=== PATIENT | female | born 1945 | race Caucasian/White ===

== ENCOUNTER 2018-04-07 06:52 | Day surgery (SDC) | payer MEDICARE, BC ==
--- NOTE | 2018-04-04 19:37 | HP ---
CC: Dr. Lee [facility]; Dr. Chris Marie; Dr. Tomy Saeed * ADMISSION HISTORY AND PHYSICAL: DATE OF ADMISSION: 04/07/18 - [facility] ATTENDING SURGEON: Dr. Jason Khalil * (DICTATED BY JD THOMAS) CHIEF COMPLAINT: Melanoma, left posterior thigh. HISTORY OF PRESENT ILLNESS: This is a 72-year-old female with past history of melanoma of the left upper extremity who was recently evaluated by Dr. Marie for number of pigmented skin lesions. A lesion of the left posterior thigh was suspicious and was shave biopsied, revealing a nodular melanoma measuring 0.8 x 0.8 x 0.2 cm with a thickness of 1.4 mm with margin of 0.1 cm for the closest lateral margin and 0.2 cm for the base of the lesion. She was referred for general surgical evaluation and was seen in the office by Dr. Khalil on . The case was reviewed with Dr. Tomy Saeed and after review of the indications, risks, benefits and alternatives, the patient would like to proceed as scheduled with wide excision of left posterior thigh melanoma with sentinel lymph node biopsy. The patient is fairly anxious about the procedure and I did e-send a prescription for Xanax 0.5 mg to her pharmacy for preoperative anxiety. She states that she has no known family history of melanoma and that she has undergone yearly dermatological examinations with Dr. Schmid in [place]. PAST MEDICAL HISTORY: 1. COPD. 2. Anxiety. 3. Hypertension. 4. Hyperlipidemia. PAST SURGICAL HISTORY: Include: 1. Excision of left upper extremity melanoma, 8 to 10 years ago. It does not sound as though the patient underwent sentinel lymph node biopsy at that time. 2. She has had bilateral varicoses vein surgery. 3. Tubal ligation with no reported surgical anesthesia complications. CURRENT MEDICATIONS: 1. Albuterol nebulizer each morning and p.r.n. 2. Anoro Ellipta 62.5/25 one inhalation once daily. 3. Bupropion 150 g b.i.d. 4. Metoprolol succinate 25 mg once daily. 5. Atorvastatin 40 mg once daily. 6. Aspirin 81 mg once daily (the patient instructed to hold after today, her last dose being 04/04/18). 7. Multivitamin daily. 8. Calcium with vitamin D daily. 9. Flovent MDI 2 puffs p.r.n. (uses infrequently). DRUG ALLERGIES: None. FAMILY HISTORY: Negative for anesthesia problems, bleeding or clotting disorders. SOCIAL HISTORY: The patient is . 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 She is a former smoker, 1 pack per day for 50 plus years, who quit 3 years ago. It sounds as though she has undergone some low dose CT screening for lung cancer. She drinks on average 5 to 6 drinks 2 to 3 times per week. I encouraged her to cut back from that total. She denies any other recreational drug use. REVIEW OF SYSTEMS: General: No recent constitutional symptoms or acute illnesses. Remains unstable. HEENT: No problems reported. Cardiovascular: No chest pain, palpitations, or history of heart murmur. She is treated for hypertension. Respiratory: No recent exacerbations of her COPD. GI: No problems reported. Colonoscopy done approximately 2 years ago with no polyps at that time. PATIENT APPOINTMENT COORDINATOR: The patient states that she is within 1 year for most recent breast exam and mammogram, both reportedly normal. : No problems reported. Endocrine: No diabetes or thyroid dysfunction. Neuro/Psych: History of anxiety. PHYSICAL EXAMINATION GENERAL: Well-nourished, well-developed somewhat obese female, in no acute distress. VITAL SIGNS: Height 63 inches, weight 169 pounds, temperature 97.9, blood pressure 132/84, pulse 78, respirations 18. HEENT: She has a full upper denture, remaining lower teeth are in fair to good repair (she does have a partial lower denture which she does not use). Pupils are equal, round, and reactive. EOMs intact. No conjunctival pallor. NECK: No lymphadenopathy in the cervical or supraclavicular regions. No palpable thyromegaly or masses. LUNGS: Clear to auscultation. No rales or wheezes. HEART: Regular rate and rhythm. No murmur noted. BREASTS: Not examined (see above). ABDOMEN: Soft, nontender to palpation. No palpable masses or organomegaly. GENITALIA: Not done. RECTAL: Not done. BACK: No spinous process or CVA tenderness. SKIN: Warm and dry. She has the lesion of the left posterior thigh which is described by Dr. Khalil as being a 1 cm eschar consistent with recent biopsy, roughly in the mid posterior thigh on the left without evidence of satellite lesions or in-transit metastasis and no obvious palpable adenopathy. I did not reexamine that area today. She does have a well healed scar from the posterior aspect of the left upper extremity at the posterior axillary line without evidence of recurrence. Her lower extremities were notable for hyperpigmentation and chronic venous stasis changes, though without any suspicious lesions. EXTREMITIES: Trace edema in the lower extremities. See also above for skin. I did not check pulses on today's exam. NEUROLOGICAL: Grossly intact. She is anxious. IMPRESSION: Melanoma, left posterior thigh. PLAN: excision melanoma left posterior thigh with sentinel lymph node biopsy. JD THOMAS [id number]/[facility] #: [id number] MTDD
[~2018-04-07 06:52] MED LIST: Buffered Lidocaine 1% SYRIN* 1 ML/SYRINGE INTRADERM ONE; Dexamethasone IV* 4 MG/ML 1 ML (4 MG) IV SLOW PU ONE; Famotidine IV* 10 MG/ML 2 ML (20 mg) IV ONE; Lactated Ringers 1000 ML Bag* 1,000 ML IV SCH
[2018-04-07] MEDS ORDERED: Lidocaine 2.5%/Prilocain 2.5%* 5 GM TUBE ONE (07:27)
[2018-04-07] MEDS ORDERED: Famotidine IV* 10 MG/ML 2 ML (20 mg) ONE (10:01)
[2018-04-07] MEDS ORDERED: Dexamethasone IV* 4 MG/ML 1 ML (4 MG) ONE (10:01)
[2018-04-07] MEDS ORDERED: ceFAZolin 2 GM PREMIX in ORs 2 GM/50 ML BAG IVPB ONE (10:04)
[2018-04-07] MEDS ORDERED: fentaNYL* 50 MCG/ML 2 ML VIAL (100 MCG VIAL) ONE ×2 (10:08→12:17)
[2018-04-07] MEDS ORDERED: Midazolam* 1 MG/ML 2 ML VIAL (2 MG) ONE (10:08)
[2018-04-07] MEDS ORDERED: Bupivacaine 0.5%* 50 ML VIAL ONE (10:59)
[2018-04-07] MEDS ORDERED: Lidocaine 1% MPF wEPI 200,000* 30 ML SDV ONE (10:59)
[2018-04-07] MEDS ORDERED: Methylene Blue 0.5 %* 50 MG/10 ML AMP IV ONE (10:59)
[2018-04-07] MEDS ORDERED: Propofol* 10 MG/ML 20 ML BTL ONE ×2 (11:05→12:17)
[2018-04-07] MEDS ORDERED: Naloxone* 0.4 MG/ML 1 ML VIAL IV PRN (12:49)
[2018-04-07] MEDS ORDERED: Ondansetron INJ* 2 MG/ML VIAL IV PRN (12:49)
[2018-04-07] MEDS ORDERED: fentaNYL* 50 MCG/ML 2 ML VIAL (100 MCG VIAL) IV PRN (12:49)
[2018-04-07] MEDS ORDERED: Ketorolac INJ* 30 MG/ML 1 ML VIAL ONE (13:27)
[2018-04-07 13:44] VITALS: BP 133/56
--- NOTE | 2018-04-07 20:16 | OP ---
CC: Dr. Lee; Dr. Saeed; Dr. Marie * DATE OF OPERATION: 04/07/18 - [facility] DATE OF : 41 SURGEON: Jason Khalil MD GRAIN FARMWORKER: Julia Connors NP ANESTHESIOLOGIST: Dr. Mondragon. ANESTHESIA: LMAC anesthesia. PRE-OP DIAGNOSIS: Melanoma of left posterior thigh. POST-OP DIAGNOSIS: Melanoma of left posterior thigh. OPERATIVE PROCEDURE: Wide excision of melanoma of left posterior thigh with sentinel node biopsy. DESCRIPTION OF PROCEDURE: The patient was initially placed in the prone position. The left posterior thigh was prepped with an antiseptic, draped in a sterile fashion. Local infiltrative anesthesia was administered. The incision was marked out using ruler to ensure 2 [address] margins [address] the way around. An elliptical incision was thus created, which was therefore 4.5 x 6 cm in size and the dissection as taken down to and including the muscle fascia. Specimen was sent in formalin with suture marking distal, and then closure was accomplished in layers using 3-0 Vicryl followed by surgical jarvis followed by a gauze dressing. She was then placed in the supine position and the left groin is clipped and prepped with antiseptic, draped in a sterile fashion, local infiltrate with anesthesia administered and approximately 5 cm incision is created and dissection carried down to the evelia tissue. There were two nodes, which are fairly hot and both very small, each of these are only about 2 mm across. These were sentinel nodes #1 and #2 and then there was a larger lymph node of about a centimeter across that has count of 450, so this was sentinel node #3 and then the 4th node was also large and a little firm. This really does not have much of a count, the count total was 75, so this is not technically a sentinel node, but it was a little firm and enlarged and adjacent to the other sentinel node. There are no other remaining suspicious lymph nodes in the region and the basin count was down to about 10 or 12. Hemostasis was good. Closure was accomplished using 3-0 and 4-0 Vicryl followed by a sterile gauze dressing. She tolerated procedure well, was awakened and brought to Recovery in good condition. SPECIMENS: Wide excision, left posterior thigh melanoma and suture marking distal and there are sentinel nodes #1, #2, #3, and #4. ESTIMATED BLOOD LOSS: 30 mL. COMPLICATIONS: There were no complications. DRAINS: No drains. [id number]/[facility] #: [id number] [facility] HOSPITALBert
== END 2018-04-07 13:51 | disposition home or self-care (01) ==
LOC: SDS 06:52
PROVIDERS: ATTEND Surgery
DX: C43.72 Malignant melanoma of left lower limb, including hip (principal); C77.4 Secondary and unspecified malignant neoplasm of inguinal and lower limb lymph nodes; J44.9 Chronic obstructive pulmonary disease, unspecified; I10 Essential (primary) hypertension; E78.5 Hyperlipidemia, unspecified; F41.9 Anxiety disorder, unspecified; Z87.891 Personal history of nicotine dependence
CPT/HCPCS: 78195; 88307; 88341; 88342; A9270-GY; A9541; J0690; J1100; J1885; J2001; J2250; J2704; J3010

== ENCOUNTER 2018-05-05 07:20 | Day surgery (SDC) | payer MEDICARE, BC ==
[~2018-05-05 07:20] MED LIST changes: -Dexamethasone IV* 4 MG/ML 1 ML (4 MG) IV SLOW PU ONE; -Famotidine IV* 10 MG/ML 2 ML (20 mg) IV ONE
[2018-05-05] MEDS ORDERED: ceFAZolin 2 GM in NS PREMIX(*) 2 GM/100 ML BAG IVPB ONE (07:43)
[2018-05-05] MEDS ORDERED: Lidocaine 1% INJ* 10 MG/ML 30 ML SDV ONE (09:14)
[2018-05-05] MEDS ORDERED: Midazolam* 1 MG/ML 5 ML VIAL (5 MG) ONE (09:32)
[2018-05-05] MEDS ORDERED: fentaNYL* 50 MCG/ML 2 ML VIAL (100 MCG VIAL) ONE (09:44)
[2018-05-05] MEDS ORDERED: Midazolam* 1 MG/ML 2 ML VIAL (2 MG) ONE (09:54)
[2018-05-05] MEDS ORDERED: Propofol* 10 MG/ML 20 ML BTL ONE (10:02)
[2018-05-05] MEDS ORDERED: Ondansetron INJ* 2 MG/ML VIAL IV PRN (10:18)
[2018-05-05] MEDS ORDERED: oxyCODONE/Acetamin 5/325 MG* TAB PO PRN (10:18)
[2018-05-05] MEDS ORDERED: fentaNYL* 50 MCG/ML 2 ML VIAL (100 MCG VIAL) IV PRN (10:18)
[2018-05-05] MEDS ORDERED: Naloxone* 0.4 MG/ML 1 ML VIAL IV PRN (10:18)
--- NOTE | 2018-05-05 11:01 | OP ---
CC: Dr. Jason Khalil; Dr. Saeed OPERATIVE REPORT: DATE OF OPERATION: 05/05/18 DATE OF : 41 SURGEON: Jason Khalil MD COLLAR SHAPER OPERATOR: None. ANESTHESIOLOGIST: Dr. Johnson. ANESTHESIA: LMAC anesthesia. PRE-OP DIAGNOSIS: Melanoma. POST-OP DIAGNOSIS: Melanoma. OPERATIVE PROCEDURE: Placement of left subclavian 8-Moldovan port. DESCRIPTION OF PROCEDURE: The patient was laid supine on the operative table. After adequate intrave nous sedation, compression stockings, Bruce-Hugger warmer, and intravenous antibiotics, the left chest and neck region were prepped with antiseptic and draped in a sterile fashion. Local infiltrative an esthesia was administrated. Small subclavian incision was created, approximately 3 cm in size and po cket was created. Subclavian venipuncture was carried out. Guidewire passed under fluoroscopic guid ance and catheter passed with peel-away introducer, measured and cut to 28 cm, attached to the port, which was sutured in the pocket with 2-0 Prolene. Pocket was closed with 3-0 and 4-0 Vicryl followed by Steri-Strips. The port was flushed with saline solution and heparinized solution. She tolerated this well. She was brought to recovery in good condition. No complications. No drains. No patholo gic specimens. Sponge and instrument counts were correct. ESTIMATED BLOOD LOSS: Less than 10 mL. [id number]/[facility] #: [id number]
[2018-05-05 11:23] VITALS: BP 152/64
== END 2018-05-05 11:45 | disposition home or self-care (01) ==
LOC: OR 07:20
PROVIDERS: ATTEND Surgery
DX: C43.72 Malignant melanoma of left lower limb, including hip (principal); I10 Essential (primary) hypertension; E78.5 Hyperlipidemia, unspecified; J44.9 Chronic obstructive pulmonary disease, unspecified; Z99.81 Dependence on supplemental oxygen; M19.90 Unspecified osteoarthritis, unspecified site; F41.9 Anxiety disorder, unspecified; Z87.891 Personal history of nicotine dependence
CPT/HCPCS: 71045; 76000; C1788; J0690; J1642; J2250; J2704; J3010

== ENCOUNTER 2019-04-28 14:48 | Emergency (ER) | payer MEDICARE, BC ==
--- NOTE | 2019-04-28 15:35 | UC ---
FLU HPI - HPI Summary HPI Summary: Patient is a 73yo female presenting with cough x10 days. Patient states cough is not worsening but not improving. Denies sob but notes wheezing at night when lying down. Denies difficulty breathing and chest pain currently. Denies URI symptoms. Denies n/v. Denies fever, chills, and body aches at any point. Normal appetite and fluid intake. Patient states she was seen by Dr. Saeed yesterday who ordered CXR for cough since she is currently receiving chemotherapy for melanoma. Dr. Saeed spoke with Dr. Barahona about the patient and request flu and covid 19 testing since patient is a cancer patient and at high risk for infection. Denies recent travel or ill contacts. PMHx also significant for htn and COPD. States O2 sat usually between 92-94% at baseline. Also notes having low BP normally. - History of Current Complaint Stated Complaint: COUGH Hx Obtained From: Patient, Family/Collar Starcher - - Allergy/Home Medications Allergies/Adverse Reactions: Allergies Allergy/AdvReac Type Severity Reaction Status Date / Time gastroview AdvReac Severe Diarrhea Uncoded 02/17/19 13:02 Home Medications: Home Medications Atorvastatin* [Lipitor 10 MG*] 40 mg PO QAM 09/24/14 [History Confirmed 04/28/19 ] Albuterol HFA INHALER* [Ventolin HFA Inhaler*] 2 puff INH Q6H PRN 01/31/15 [ History Confirmed 05/05/18] [place]-3 Fatty Acids (Nf) [Fish Oil (NF)] 360 mg PO QAM 01/31/15 [History Confirmed 04/28/19] Calcium 1,200 + D3 Caplet 1 tab PO QAM 03/31/18 [History Confirmed 04/28/19] Metoprolol Succinate XL TAB* [Toprol XL TAB*] 25 mg PO QAM 03/31/18 [History Confirmed 04/28/19] Umeclidin/Vilant 62.5 MDI(NF) [ANORO 62.5/25 Ellipta DEVICE (NF)] 1 inh INH QAM 03/31/18 [History Confirmed 04/28/19] ALPRAZolam TAB* [Xanax TAB*] 0.5 mg PO Q3H PRN 04/06/18 [History Confirmed 04/27] Cholecalciferol (Vitamin D3) [Vitamin D3] 2,000 unit PO QAM 05/03/18 [History Confirmed 04/28/19] Venlafaxine HCl [Venlafaxine HCl ER] 37.5 mg PO QAM 05/03/18 [History Confirmed 04/28/19] PMH/Surg Hx/FS Hx/Imm Hx Endocrine History: Dyslipidemia Cardiovascular History: Hypertension Respiratory History: COPD - Surgical History Surgical History: Yes Surgery Procedure, Year, and Place: 2008 removal of cyst on neck, veins stripped in left leg, melanoma left posterior thigh 03/2018, tubal - Social History Alcohol Use: None Alcohol Amount: 4 DRINKS 2 TIMES PER WEEK Substance Use Type: None Smoking Status (MU): Former Smoker Type: Cigarettes Amount Used/How Often: 1 pack per day Length of Time of Smoking/Using Tobacco: 55yrs Have You Smoked in the Last Year: No When Did the Patient Quit Smoking/Using Tobacco: 01/30/2015 Household Exposure Type: Cigarettes - Immunization History Most Recent Influenza Vaccination: fall 2014 Most Recent Tetanus Shot: within 10 years Most Recent Pneumonia Vaccination: 2013 Review of Systems All Other Systems Reviewed And Are Negative: Yes Constitutional: Positive: Negative ENT: Positive: Negative Respiratory: Positive: Cough - nonproductive, Other - wheezing at night. Negative: Shortness Of Breath Cardiovascular: Positive: Negative. Negative: Chest Pain Gastrointestinal: Positive: Negative Musculoskeletal: Positive: Negative Neurological/Mental Status: Positive: Negative Physical Exam Triage Information Reviewed: Yes Appearance: Well-Appearing, No Pain Distress, Well-Nourished Vital Signs: Vital Signs (72 hours) 04/28/19 15:53 Temperature 97.4 F Pulse Rate 112 Respiratory 20 Rate Blood Pressure 97/61 (mmHg) O2 Sat by Pulse 91 Oximetry Lab Results 04/28/19 04/28/19 Range/Units 15:49 15:51 Influenza A (Rapid) Negative (Negative) Influenza B (Rapid) Negative (Negative) Group A Strep Rapid Negative (Negative) Vital Signs Reviewed: Yes Eyes: Positive: Conjunctiva Clear ENT: Positive: Hearing grossly normal, Pharynx normal, TMs normal, Uvula midline. Negative: Nasal congestion, Nasal drainage, Tonsillar swelling, Tonsillar exudate, Trismus, Muffled voice, Hoarse voice Neck exam: Normal Neck: Positive: Supple, Nontender, No Lymphadenopathy Respiratory Exam: Normal Respiratory: Positive: Lungs clear, Normal breath sounds, No respiratory distress, No accessory muscle use, Other: - no tachypnea. Negative: Crackles, Rhonchi, Stridor, Wheezing Cardiovascular Exam: Other - mild tachycardia, regular rhythm Cardiovascular: Positive: No Murmur Neurological: Positive: Alert Psychological: Positive: Age Appropriate Behavior Skin Exam: Normal Flu Course/Dx - Course Course Of Treatment: Negative rapid strep and flu. Patient well-appearing and in no respiratory distress. Discussed likely acute bronchitis with patient and instructed to continue his current treatment. Patient was tested for covid19. Infection control was contacted and self quaratine precautions were given until she is called with covid 19 results. Instructed patient to contact PCP if symptoms worsen or persist. - Differential Dx/Diagnosis Differential Diagnosis/HQI/PQRI: Bronchitis, Influenza, Upper Respiratory Infection Provider Diagnosis: Acute bronchitis Discharge ED - Sign-Out/Discharge Documenting (check all that apply): Patient Departure All imaging exams completed and their final reports reviewed: No Studies - Discharge Plan Condition: Stable Disposition: HOME Patient Education Materials: Acute Bronchitis (ED) Referrals: Edilia Lee MD [Primary Care Provider] - Additional Instructions: Your flu test was negative today. Self-quarantine at home until you receive covid 19 test results. Continue to use your nebulizer as needed. Get plenty of rest and fluids. Contact your primary care provider if your symptoms worsen or do not improve within 7 days. - Billing Disposition and Condition Condition: STABLE Disposition: Home - Attestation Statements Provider Attestation: This patient was not seen by me. I was available for consult. Chart reviewed. DUNCAN
[2019-04-28 15:57] VITALS: BP 97/61
[2019-04-28 16:02] LABS: Influenza A Molecular Negative (Negative); Influenza B Molecular Negative (Negative)
== END 2019-04-28 18:15 | disposition home or self-care (01) ==
LOC: UCEAST 14:48
DX: J20.9 Acute bronchitis, unspecified (principal); J44.0 Chronic obstructive pulmonary disease with (acute) lower respiratory infection; I10 Essential (primary) hypertension; E78.5 Hyperlipidemia, unspecified; Z88.8 Allergy status to other drugs, medicaments and biological substances; Z79.899 Other long term (current) drug therapy; Z87.891 Personal history of nicotine dependence
CPT/HCPCS: 87651; 99211; G0463

== ENCOUNTER 2023-04-12 16:28 | Inpatient (IN) ==
[2023-04-12] MEDS: Albuterol/Ipratropium NEB.SOL (2.5/0.5 MG) 3 ML NEB.SOLN INH ONE ×2 (17:15→18:30)
[2023-04-12] MEDS ORDERED: Albuterol/Ipratropium NEB.SOL (2.5/0.5 MG) 3 ML NEB.SOLN ONE (17:16)
[2023-04-12] MEDS: Magnesium Sulfate 2 gm BAG 2 GM/50 ML BAG IVPB ONE (17:20)
[2023-04-12 17:31] LABS: ABS Lymphocytes 1.5 10^3/uL (1.0-4.8); ABS Monocytes 0.8 10^3/uL (0.0-0.9); ABS Neutrophils 9.2 10^3/uL (1.5-7.6); Eosinophil % 0.3 %; Hematocrit 23.8 % (35-45); Hemoglobin 7.4 g/dL (11.5-14.3); Lymphocyte % 13.2 %; Mean Corpuscular Hemoglobin 23.8 pg (27-33); Mean Corpuscular Hgb Conc 31.1 g/dL (31-36); Mean Corpuscular Volume 76.5 fL (80-97); Mean Platelet Volume 8.1 fL (7.5-11.2); Platelet Count 415 10^3/uL (150-450); Red Blood Count 3.11 10^6/uL (3.63-4.92); Red Cell Distribution Width 20.3 % (12-17); White Blood Count 11.6 10^3/uL (3.8-11.8)
[2023-04-12 18:10] LABS: Albumin 3.8 g/dL (3.2-5.2); Albumin/Globulin Ratio 1.3 (1-3); C Reactive Protein 175.47 mg/L (<8.01); Calcium 9.3 mg/dL (8.6-10.3); Creatinine, Serum 1.01 mg/dL (0.51-0.95); Total Bilirubin 0.3 mg/dL (0.2-1.0); Total Protein 6.8 g/dL (6.4-8.9); eGFR CKD-EPI 56.6 (>60)
[2023-04-12] MEDS: cefTRIAXone 1 gm/50 mL D5W 1 GM/50 ML BAG IV ONE (18:42)
[2023-04-12 18:50] LABS: INR 1.52 (0.83-1.13)
[2023-04-12 19:18] LABS: High Sensitivity Troponin 1 Hr 105 pg/mL (<15)
[2023-04-12] MEDS: Azithromycin 500 mg/250 ml NS 500 MG/250 ML BAG IVPB ONE (19:21)
[2023-04-12] MEDS: Albuterol/Ipratropium NEB.SOL (2.5/0.5 MG) 3 ML NEB.SOLN INH SCH (19:47)
[2023-04-12] MEDS: NS 0.9% 500 ml BAG 500 ML IV ONE (20:29)
[2023-04-12] MEDS: Enoxaparin 40 MG/0.4 ML SYR SUBCUT SCH (20:30)
[2023-04-12 21:33] LABS: High Sensitivity Troponin 3 Hr 8 pg/mL (<15)
[2023-04-12] MEDS: Iohexol 350 (CONTRAST) 500 ML MDV IV ONE (21:45)
[2023-04-13 05:55] LABS: ABS Lymphocytes 1.5 10^3/uL (1.0-4.8); ABS Neutrophils 8.7 10^3/uL (1.5-7.6); Hematocrit 20.7 % (35-45); Hemoglobin 6.6 g/dL (11.5-14.3); Lymphocyte % 13.3 %; Mean Corpuscular Hgb Conc 31.7 g/dL (31-36); Mean Corpuscular Volume 75.8 fL (80-97); Platelet Count 395 10^3/uL (150-450); Red Blood Count 2.74 10^6/uL (3.63-4.92); Red Cell Distribution Width 21.1 % (12-17); White Blood Count 11.2 10^3/uL (3.8-11.8)
[2023-04-13 06:16] LABS: INR 1.43 (0.83-1.13)
[2023-04-13 07:06] LABS: Calcium 8.7 mg/dL (8.6-10.3); Creatinine, Serum 0.83 mg/dL (0.51-0.95); Magnesium 2.3 mg/dL (1.9-2.7); Potassium 4.9 mmol/L (3.5-5.0); eGFR CKD-EPI 71.7 (>60)
[2023-04-13] MEDS: Venlafaxine XR 75 mg PO SCH (08:14)
[2023-04-13] MEDS: Tiotropium Brom/Olodaterol MDI (ACUTE) INH SCH (08:22)
[2023-04-13] MEDS: Ferric Gluconate IV 250 MG in NS 0.9% 250 ml 200 ML IVPB ONE (11:51)
[2023-04-13 13:23] LABS: Hematocrit 24.8 % (35-45)
[2023-04-13] MEDS ORDERED: Sulfur Hexaflouride MICROSPHR 25 MG VIAL ONE (14:39)
[2023-04-13] MEDS: Azithromycin 500 mg/250 ml NS 500 MG/250 ML BAG IVPB SCH (17:35)
[2023-04-13] MEDS: cefTRIAXone 1 gm/50 mL D5W 1 GM/50 ML BAG IV SCH (18:32)
[2023-04-13] MEDS: Albuterol/Ipratropium NEB.SOL (2.5/0.5 MG) 3 ML NEB.SOLN INH SCH (19:23)
[2023-04-14 06:26] LABS: Hematocrit 25.3 % (35-45); Mean Corpuscular Hemoglobin 24.6 pg (27-33); Mean Corpuscular Hgb Conc 31.7 g/dL (31-36); Mean Corpuscular Volume 77.6 fL (80-97); Mean Platelet Volume 8.3 fL (7.5-11.2); Platelet Count 475 10^3/uL (150-450); Red Blood Count 3.26 10^6/uL (3.63-4.92); Red Cell Distribution Width 20.9 % (12-17); White Blood Count 14.7 10^3/uL (3.8-11.8)
[2023-04-14 06:43] LABS: Creatinine, Serum 0.78 mg/dL (0.51-0.95); Magnesium 2.2 mg/dL (1.9-2.7); Potassium 4.8 mmol/L (3.5-5.0); eGFR CKD-EPI 77.2 (>60)
[2023-04-14 07:42] LABS: ABS Basophils 0.1 10^3/uL (0.0-0.1); ABS Lymphocytes 2.7 10^3/uL (1.0-4.8); ABS Monocytes 1.7 10^3/uL (0.0-0.9); ABS Neutrophils 10.3 10^3/uL (1.5-7.6); ABS Nucleated RBC 0.03 10^3/ul; Anisocytosis 3+; Eosinophil % 0.1 %; Lymphocyte % 18.2 %; Macrocytosis 1+; Microcytosis 1+; Nucleated Red Blood Cells % 0.2 %/100WBC (0.0-0.8)
[2023-04-14] MEDS: Lactated Ringers 1000 ml BAG 1,000 ML IV SCH (13:42)
[2023-04-14] MEDS: Levalbuterol HFA INHALER MDI INH PRN (18:09)
[2023-04-14] MEDS: methylPREDNISolone SOD SUCC 40 mg/ml 1 ml VIAL IV ONE (18:17)
[2023-04-15 05:49] LABS: Hemoglobin 8.5 g/dL (11.5-14.3); Mean Corpuscular Hemoglobin 24.6 pg (27-33); Mean Corpuscular Hgb Conc 31.6 g/dL (31-36); Mean Corpuscular Volume 77.8 fL (80-97); Mean Platelet Volume 7.9 fL (7.5-11.2); Platelet Count 506 10^3/uL (150-450); Red Blood Count 3.47 10^6/uL (3.63-4.92); Red Cell Distribution Width 21.4 % (12-17); White Blood Count 13.4 10^3/uL (3.8-11.8)
[2023-04-15 06:15] LABS: Creatinine, Serum 0.85 mg/dL (0.51-0.95); Magnesium 2.9 mg/dL (1.9-2.7); Potassium 5.1 mmol/L (3.5-5.0); eGFR CKD-EPI 69.6 (>60)
[2023-04-15 07:32] LABS: ABS Lymphocytes 1.9 10^3/uL (1.0-4.8); ABS Monocytes 0.9 10^3/uL (0.0-0.9); ABS Neutrophils 10.5 10^3/uL (1.5-7.6); ABS Nucleated RBC 0.04 10^3/ul; Lymphocyte % 14.1 %; Nucleated Red Blood Cells % 0.3 %/100WBC (0.0-0.8)
[2023-04-15] MEDS: Albuterol/Ipratropium NEB.SOL (2.5/0.5 MG) 3 ML NEB.SOLN INH PRN (07:47)
[2023-04-15] MEDS: methylPREDNISolone SOD SUCC 40 mg/ml 1 ml VIAL IV SCH (11:55)
[2023-04-15] MEDS: SODIUM ZIRCONIUM CYCLOSILICATE 10 GM PACKET PO ONE (11:55)
[2023-04-15] MEDS: Levalbuterol HFA INHALER MDI INH SCH (19:19)
[2023-04-15] MEDS ORDERED: Magnesium Hydroxide LIQ 30 ML UDC PO PRN (19:51)
[2023-04-15] MEDS ORDERED: Polyethylene Glycol 3350 17 GM PACKET PO PRN (19:51)
[2023-04-15] MEDS: Senna TAB 8.6 mg TAB PO PRN (20:03)
[2023-04-15] MEDS: Magnesium Hydroxide LIQ 30 ML UDC PO SCH (20:08)
[2023-04-16 07:08] LABS: ABS Basophils 0.1 10^3/uL (0.0-0.1); ABS Lymphocytes 3.3 10^3/uL (1.0-4.8); ABS Monocytes 1.3 10^3/uL (0.0-0.9); ABS Neutrophils 11.6 10^3/uL (1.5-7.6); ABS Nucleated RBC 0.03 10^3/ul; Eosinophil % 0.1 %; Hematocrit 28.4 % (35-45); Hemoglobin 8.8 g/dL (11.5-14.3); Lymphocyte % 20.2 %; Mean Corpuscular Hemoglobin 24.2 pg (27-33); Mean Corpuscular Hgb Conc 31.1 g/dL (31-36); Mean Corpuscular Volume 77.8 fL (80-97); Mean Platelet Volume 7.8 fL (7.5-11.2); Nucleated Red Blood Cells % 0.2 %/100WBC (0.0-0.8); Platelet Count 505 10^3/uL (150-450); Red Blood Count 3.64 10^6/uL (3.63-4.92); Red Cell Distribution Width 21.1 % (12-17); White Blood Count 16.2 10^3/uL (3.8-11.8)
[2023-04-16 07:26] LABS: Calcium 9.1 mg/dL (8.6-10.3); Creatinine, Serum 0.87 mg/dL (0.51-0.95); Magnesium 2.2 mg/dL (1.9-2.7); Potassium 4.4 mmol/L (3.5-5.0); eGFR CKD-EPI 67.7 (>60)
[2023-04-16 09:55] VITALS: BP 150/72
== END 2023-04-16 13:15 | disposition home or self-care (01) | DRG 189 ==
LOC: ED 16:28 → SUATTDRO 19:12 → EDHOLD 19:12 → MED 19:12
PROVIDERS: ADMIT Internal Medicine; ATTEND Student in an Organized Health Care Education/Training Program